=== PATIENT | male | born 1990 | race Caucasian/White ===

== ENCOUNTER 2024-04-08 14:33 | Emergency (ER) | payer OTHER, SELFPAY ==
[2024-04-08 14:42] VITALS: BP 158/106; PULSE 82; RESP 16; TEMP 36.5; O2SAT 100; BMI 26.9
[2024-04-08 15:35] VITALS: BP 135/96; PULSE 84; RESP 16; O2SAT 99
--- NOTE | 2024-04-08 15:35 | W.ED.GENADLT ---
Documented by User: PATRICIA Llanos 04/08/24 16:59 HPI - General Adult General: Chief complaint: General Medical Stated complaint: Eyes/ skin yellow sent by PCP Time Seen by Provider: 04/08/24 15:24 Source: patient and family Mode of arrival: ambulatory Limitations: no limitations History of Present Illness: Patient is a nice 33-year-old male who presents to ED today along with his significant other for complaints of jaundice, weight loss, pruritus over the past 3 weeks or so. states she and him both had viral-like illness around consisting of fevers, chills, body aches, URI-like symptoms. She states they improved conservatively but shortly after resolution of symptoms, patient began having the above symptoms. does feel like the jaundice has somewhat improved since onset. They reportedly contacted their primary care doctor today who instructed them to come to the emergency department. states he has lost about 15 pounds over the past week and a half. They do feel like he is eating normally. He is not having any abdominal pain. He is not having any vomiting or changes in bowel movements. No change in stool color. No fevers. Onset (ago): week(s) Relieving factors: none Exacerbating factors: none Associated symptoms: Deny chest pain, dyspnea, headache(s), malaise, nausea, rash or vomiting Treatments prior to arrival: none Related Data Previous Rx's Medication Instructions Recorded cholestyramine (with sugar) 4 gram 4 g PO BID #348.6 grams 04/08/24 oral powder Allergies Allergy/AdvReac Type Severity Reaction Status Date / Time No Known Allergies Allergy Verified 04/08/24 14:46 Review of Systems Const: Reports: change in weight; Denies: fever(s), chills, body aches, fatigue or malaise Eyes: Reports: yellow eyes ENMT: Denies: throat pain, odynophagia, ear or mastoid pain, nasal discharge, nasal congestion or sinus pain Card: Denies: chest pain Resp: Denies: dyspnea GI: Denies: abdominal pain, nausea, vomiting or diarrhea : Denies: flank pain, difficulty urinating, dysuria, urinary frequency, urinary urgency or urinary hesitancy Musc: Denies: neck pain, back pain, extremity pain, extremity swelling, joint pain or joint swelling Skin/Breast: Denies: rash Neuro: Denies: headache(s), numbness in extremities, weakness in extremities or sensory changes Physical Exam Const: COMMON NORMALS: no acute distress, average body habitus, patient oriented x3, no limitations, healthy appearing, alert and well nourished GENERAL APPEARANCE: cooperative ORIENTATION/CONSCIOUSNESS: Yes awake, Yes oriented to person, Yes oriented to place and Yes oriented to time HENMT: COMMON NORMALS: normocephalic and atraumatic HEAD & SCALP: normal to inspection, normocephalic and atraumatic FACE & SINUS: normal facial exam Eye: COMMON NORMALS: Equal, round and reactive pupils present and EOMs intact bilaterally GENERAL EYE: appearance normal, both eyes and all related structures and normal light reflex SCLERA: scleral abnormal Laterality of scleral abnormality: positive bilateral scleral icterus PUPIL: Yes Equal, round and reactive pupils present DIRECT OPHTHALMOSCOPY: Yes normal light reflex Neck/C-Spine: COMMON NORMALS: full ROM, no lymphadenopathy, supple and no meningeal signs Chest: COMMONS NORMALS: normal inspection of the chest Resp: COMMON NORMALS: normal respiratory effort and clear to auscultation bilaterally AUSCULTATION: clear to auscultation bilaterally Cardio: COMMON NORMALS: regular rate and regular rhythm RATE: regular rate RHYTHM: regular rhythm GI: COMMON NORMALS: Normal to inspection, nondistended, normoactive bowel sounds present, Soft to palpation, non-tender, No hepatosplenomegaly present and no masses INSPECTION: Yes normal to inspection AUSCULTATION: Yes normoactive bowel sounds PALPATION: Yes Soft to palpation, No Tenderness to palpation present (GI), No Guarding due to palpation present (GI), No Rigid due to palpation and Yes No hepatosplenomegaly present : COMMON NORMALS: Yes no CVA tenderness BLADDER/KIDNEY EXAM: Yes no CVA tenderness Back/Pelvis: COMMON NORMALS: no CVA tenderness and thoracic and lumbar spine normal to inspection Extremity: COMMON NORMALS: normal to inspection GENERAL: Yes normal exam except as noted Neuro: LAWRENCE COMA SCALE: document GCS findings Lawrence coma scale eye opening: Spontaneous [place] coma scale verbal response: Orientated [place] coma scale motor response: Obey commands Grant coma scale total score: 15 COMMON NORMALS: patient oriented x3, moves all extremities, no focal motor deficits, no sensory deficits noted and gait normal SENSORIUM/ORIENTATION: Yes alert, Yes oriented to person, Yes oriented to place and Yes oriented to time MENINGEAL SIGNS: Yes no meningeal signs Course ED course: Patient has painless jaundice with a tbili of 7.2. He has CT imaging and US ordered. Care transferred to MONICA Gomez Vital Signs: Vital signs: Vital Signs Temperature 97.7 F 04/08/24 14:42 Pulse Rate 84 04/08/24 15:35 Respiratory Rate 16 04/08/24 15:35 Blood Pressure 135/96 04/08/24 15:35 Pulse Oximetry 99 04/08/24 15:35 [facility] [place] - General Adult Lab Data 04/08/24 15:44 04/08/24 15:44 Radiology Impressions Abdomen/Pelvis CT 04/08/24 16:46 IMPRESSION: 1. Borderline hepatomegaly. 2. No biliary ductal dilatation. 3. Fecalization of material within small bowel loops can be seen with hypomotility and/or enteritis. 4. Moderate colonic stool. Correlate for constipation. Gallbladder Ultrasound 04/08/24 16:46 IMPRESSION: No acute findings. Laboratory Results WBC 9.01 10^3/uL (3.29-11.43) 04/08/24 15:44 RBC 6.97 10^6/uL (3.85-5.65) H 04/08/24 15:44 Hgb 18.80 g/dL (11.27-16.99) H 04/08/24 15:44 Hct 56.3 % (37-53) H 04/08/24 15:44 MCV 80.8 fl (82-101) L 04/08/24 15:44 MCH 27.0 pg (27-33) 04/08/24 15:44 MCHC 33.4 g/dL (30-55) 04/08/24 15:44 RDW 19.2 % (12.1-15.1) H 04/08/24 15:44 Plt Count 353 10^3/cmm (157-399) 04/08/24 15:44 MPV 9.6 fL (7.4-10.4) 04/08/24 15:44 Neut % (Auto) 62.4 % 04/08/24 15:44 Lymph % (Auto) 16.9 % 04/08/24 15:44 [place] % (Auto) 10.0 % 04/08/24 15:44 Eos % (Auto) 9.1 % 04/08/24 15:44 Baso % (Auto) 1.0 % 04/08/24 15:44 Neut # (Auto) 5.63 10^3/uL (1.8-7.7) 04/08/24 15:44 Lymph # (Auto) 1.5 10^3/uL (0.8-4.8) 04/08/24 15:44 [place] # (Auto) 0.9 10^3/uL (0.2-0.9) 04/08/24 15:44 Eos # (Auto) 0.8 10^3/uL (0.0-0.8) 04/08/24 15:44 Baso # (Auto) 0.1 10^3/uL (0.0-0.1) 04/08/24 15:44 Nucleated RBC % (auto) 0 % 04/08/24 15:44 Nucleated RBCs # 0.0 /100WBC 04/08/24 15:44 PT 12.10 SECONDS (12.1-14.9) 04/08/24 15:44 INR 0.87 (0.8-1.2) 04/08/24 15:44 APTT 26.5 SECONDS (23.9-36.7) 04/08/24 15:44 Sodium 138 mmol/L (136-145) 04/08/24 15:44 Potassium 4.3 mmol/L (3.5-5.1) 04/08/24 15:44 Chloride 102 mmol/L (98-107) 04/08/24 15:44 Carbon Dioxide 26 mmol/L (22-29) 04/08/24 15:44 Anion Gap 14.3 (5-19) 04/08/24 15:44 BUN 14 mg/dL (6-20) 04/08/24 15:44 Creatinine 1.0 mg/dL (0.7-1.2) 04/08/24 15:44 GFR Calculation 86.1 mL/min (90-130) L 04/08/24 15:44 Glucose 123 mg/dL (65-115) H 04/08/24 15:44 Calculated Osmolality 288 mOsm/kg (285-295) 04/08/24 15:44 Calcium 10.1 mg/dL (8.5-10.5) 04/08/24 15:44 Total Bilirubin 7.2 mg/dL (0.15-1.2) H* 04/08/24 15:44 AST 81 U/L (0-40) H 04/08/24 15:44 ALT 205 U/L (0-41) H 04/08/24 15:44 Alkaline Phosphatase 108 U/L (40-130) 04/08/24 15:44 Ammonia 29 umol/L (16-60) 04/08/24 15:44 Lactate Dehydrogenase 436 U/L (135-225) H 04/08/24 15:44 Total Protein 7.8 g/dL (6.6-8.7) 04/08/24 15:44 Albumin 4.3 g/dL (3.5-5.2) 04/08/24 15:44 Globulin 3.5 g/dL (1.3-4.6) 04/08/24 15:44 Urine Opiates Screen Negative ng/mL (Negative) 04/08/24 16:13 Acetaminophen < 5.0 ug/mL (10-30) L 04/08/24 15:44 Ur Barbiturates Screen Negative ng/mL (Negative) 04/08/24 16:13 Ur Phencyclidine Scrn Negative ng/mL (Negative) 04/08/24 16:13 Ur Amphetamines Screen Negative ng/mL (Negative) 04/08/24 16:13 U Benzodiazepines Scrn Negative ng/mL (Negative) 04/08/24 16:13 Urine Cocaine Screen Negative ng/mL (Negative) 04/08/24 16:13 U Marijuana (THC) Screen Negative ng/mL (Negative) 04/08/24 16:13 Hepatitis A IgM Ab Non-reactive (Nonreactive) 04/08/24 15:44 Hep Bs Antigen Non-reactive (Nonreactive) 04/08/24 15:44 Hep B Core IgM Ab Non-reactive (Nonreactive) 04/08/24 15:44 Hepatitis C Antibody Non-reactive (Nonreactive) 04/08/24 15:44 Discharge Plan Discharge Patient Disposition: Home Clinical Impression: Hyperbilirubinemia Condition: Stable Prescriptions: New cholestyramine (with sugar) 4 gram powder 4 g PO BID Qty: 348.6 0RF Rx Instructions: administer w/meal; avoid other meds within 1hr before or 4-6hr after dose Discharge Orders: Discharge ED (Routine); Ordered 04/08/24 Ordered By: Marquise Melvin Patient Instructions: Jaundice (ED) Activity Restrictions/Additional Instructions: Follow-up with Dr. Ho as soon as possible for reevaluation. Take cholestyramine for the itching. If you start to develop any pain in the right upper quadrant, worsening of your jaundice, high fevers, or other concerning symptoms please return to the emergency department. Sign Out Sign Out Data: Patient Sign Out occurred on 04/08/24 at 17:07. Patient's care was discussed, and care was transferred from PATRICIA Llanos to PATRICIA De La Torre. Coding Level of Care Code ED Baggageman for Chg Fwd Documented by User: PATRICIA De La Torre 04/08/24 19:01 HPI - General Adult General: Chief complaint: General Medical Stated complaint: Eyes/ skin yellow sent by PCP Time Seen by Provider: 04/08/24 15:24 Related Data Previous Rx's Medication Instructions Recorded cholestyramine (with sugar) 4 gram 4 g PO BID #348.6 grams 04/08/24 oral powder Allergies Allergy/AdvReac Type Severity Reaction Status Date / Time No Known Allergies Allergy Verified 04/08/24 14:46 Physical Exam Neuro: LAWRENCE COMA SCALE: document GCS findings [place] coma scale total score: 15 Course Vital Signs: Vital signs: Vital Signs Temperature 97.7 F 04/08/24 14:42 Pulse Rate 84 04/08/24 15:35 Respiratory Rate 16 04/08/24 15:35 Blood Pressure 135/96 04/08/24 15:35 Pulse Oximetry 99 04/08/24 15:35 MDM - General Adult Medical Decision Making Care of patient transferred to mi by daysmtft provider. This patient has had pain with jaundice for the past 3 weeks, noted to be improving per patient and spouse in the room. With his lab work, was found to have elevated T. bili of 7.2, mild elevation in his LFTs and elevated LDH. By gallbladder ultrasound, this was negative. On CT found to have borderline hepatomegaly. Viral hepatitis cannot be excluded, and his acute hepatitis panel was negative. No history of IV drug use or recent travel. Primarily his complaint was the itching, as he was encouraged to himself of the improvement of his symptoms, also wanted to know if anything was structurally wrong. Informed him that we can refer him to GI if he wants, however he would prefer to follow-up with primary care first before any referrals. He is requesting something for the itching however, and we will prescribe bile sequestrant cholestyramine to see if this helps. His vitals have been stable throughout the ED course, has had no pain, no fevers, and no confusion. With any worsening of his jaundice, onset of pain, high fevers, or other concerning signs he is encouraged to report back to the emergency department for further evaluation. Discussed this case with Dr. Little who agrees with this plan. Lab Data 04/08/24 15:44 04/08/24 15:44 Radiology Impressions Abdomen/Pelvis CT 04/08/24 16:46 IMPRESSION: 1. Borderline hepatomegaly. 2. No biliary ductal dilatation. 3. Fecalization of material within small bowel loops can be seen with hypomotility and/or enteritis. 4. Moderate colonic stool. Correlate for constipation. Gallbladder Ultrasound 04/08/24 16:46 IMPRESSION: No acute findings. Laboratory Results WBC 9.01 10^3/uL (3.29-11.43) 04/08/24 15:44 RBC 6.97 10^6/uL (3.85-5.65) H 04/08/24 15:44 Hgb 18.80 g/dL (11.27-16.99) H 04/08/24 15:44 Hct 56.3 % (37-53) H 04/08/24 15:44 MCV 80.8 fl (82-101) L 04/08/24 15:44 MCH 27.0 pg (27-33) 04/08/24 15:44 MCHC 33.4 g/dL (30-55) 04/08/24 15:44 RDW 19.2 % (12.1-15.1) H 04/08/24 15:44 Plt Count 353 10^3/cmm (157-399) 04/08/24 15:44 MPV 9.6 fL (7.4-10.4) 04/08/24 15:44 Neut % (Auto) 62.4 % 04/08/24 15:44 Lymph % (Auto) 16.9 % 04/08/24 15:44 [place] % (Auto) 10.0 % 04/08/24 15:44 Eos % (Auto) 9.1 % 04/08/24 15:44 Baso % (Auto) 1.0 % 04/08/24 15:44 Neut # (Auto) 5.63 10^3/uL (1.8-7.7) 04/08/24 15:44 Lymph # (Auto) 1.5 10^3/uL (0.8-4.8) 04/08/24 15:44 [place] # (Auto) 0.9 10^3/uL (0.2-0.9) 04/08/24 15:44 Eos # (Auto) 0.8 10^3/uL (0.0-0.8) 04/08/24 15:44 Baso # (Auto) 0.1 10^3/uL (0.0-0.1) 04/08/24 15:44 Nucleated RBC % (auto) 0 % 04/08/24 15:44 Nucleated RBCs # 0.0 /100WBC 04/08/24 15:44 PT 12.10 SECONDS (12.1-14.9) 04/08/24 15:44 INR 0.87 (0.8-1.2) 04/08/24 15:44 APTT 26.5 SECONDS (23.9-36.7) 04/08/24 15:44 Sodium 138 mmol/L (136-145) 04/08/24 15:44 Potassium 4.3 mmol/L (3.5-5.1) 04/08/24 15:44 Chloride 102 mmol/L (98-107) 04/08/24 15:44 Carbon Dioxide 26 mmol/L (22-29) 04/08/24 15:44 Anion Gap 14.3 (5-19) 04/08/24 15:44 BUN 14 mg/dL (6-20) 04/08/24 15:44 Creatinine 1.0 mg/dL (0.7-1.2) 04/08/24 15:44 GFR Calculation 86.1 mL/min (90-130) L 04/08/24 15:44 Glucose 123 mg/dL (65-115) H 04/08/24 15:44 Calculated Osmolality 288 mOsm/kg (285-295) 04/08/24 15:44 Calcium 10.1 mg/dL (8.5-10.5) 04/08/24 15:44 Total Bilirubin 7.2 mg/dL (0.15-1.2) H* 04/08/24 15:44 AST 81 U/L (0-40) H 04/08/24 15:44 ALT 205 U/L (0-41) H 04/08/24 15:44 Alkaline Phosphatase 108 U/L (40-130) 04/08/24 15:44 Ammonia 29 umol/L (16-60) 04/08/24 15:44 Lactate Dehydrogenase 436 U/L (135-225) H 04/08/24 15:44 Total Protein 7.8 g/dL (6.6-8.7) 04/08/24 15:44 Albumin 4.3 g/dL (3.5-5.2) 04/08/24 15:44 Globulin 3.5 g/dL (1.3-4.6) 04/08/24 15:44 Urine Opiates Screen Negative ng/mL (Negative) 04/08/24 16:13 Acetaminophen < 5.0 ug/mL (10-30) L 04/08/24 15:44 Ur Barbiturates Screen Negative ng/mL (Negative) 04/08/24 16:13 Ur Phencyclidine Scrn Negative ng/mL (Negative) 04/08/24 16:13 Ur Amphetamines Screen Negative ng/mL (Negative) 04/08/24 16:13 U Benzodiazepines Scrn Negative ng/mL (Negative) 04/08/24 16:13 Urine Cocaine Screen Negative ng/mL (Negative) 04/08/24 16:13 U Marijuana (THC) Screen Negative ng/mL (Negative) 04/08/24 16:13 Hepatitis A IgM Ab Non-reactive (Nonreactive) 04/08/24 15:44 Hep Bs Antigen Non-reactive (Nonreactive) 04/08/24 15:44 Hep B Core IgM Ab Non-reactive (Nonreactive) 04/08/24 15:44 Hepatitis C Antibody Non-reactive (Nonreactive) 04/08/24 15:44 All radiology interpretation(s) finalized by discharge Discharge Plan Discharge Patient Disposition: Home Clinical Impression: Hyperbilirubinemia Condition: Stable Prescriptions: New cholestyramine (with sugar) 4 gram powder 4 g PO BID Qty: 348.6 0RF Rx Instructions: administer w/meal; avoid other meds within 1hr before or 4-6hr after dose Discharge Orders: Discharge ED (Routine); Ordered 04/08/24 Ordered By: Marquise Melvin Patient Instructions: Jaundice (ED) Activity Restrictions/Additional Instructions: Follow-up with Dr. Ho as soon as possible for reevaluation. Take cholestyramine for the itching. If you start to develop any pain in the right upper quadrant, worsening of your jaundice, high fevers, or other concerning symptoms please return to the emergency department. Sign Out Sign Out Data: Patient Sign Out occurred on 04/08/24 at 17:07. Patient's care was discussed, and care was transferred from PATRICIA Llanos to PATRICIA De La Torre. Coding Level of Care Code ED Baggageman for Pablo Fan
[2024-04-08 16:00] LABS: Basophils # 0.1 10^3/uL (0.0-0.1); Eosinophils # 0.8 10^3/uL (0.0-0.8); Eosinophils % 9.1 %; Hematocrit 56.3 % (37-53); Lymphocytes # 1.5 10^3/uL (0.8-4.8); Lymphocytes % 16.9 %; Mean Corpuscular HGB Conc 33.4 g/dL (30-55); Mean Corpuscular Volume 80.8 fl (82-101); Mean Platelet Volume 9.6 fL (7.4-10.4); Monocytes # 0.9 10^3/uL (0.2-0.9); Neutrophils # 5.63 10^3/uL (1.8-7.7); Neutrophils % 62.4 %; Nucleated Red Blood Cells % 0 %; Platelet Count 353 10^3/cmm (157-399); Red Blood Count 6.97 10^6/uL (3.85-5.65); Red Cell Distribution Width 19.2 % (12.1-15.1); White Blood Count 9.01 10^3/uL (3.29-11.43)
[2024-04-08 16:26] LABS: INR 0.87 (0.8-1.2); Partial Thromboplastin Time 26.5 SECONDS (23.9-36.7)
[2024-04-08 16:28] LABS: Ammonia 29 umol/L (16-60)
[2024-04-08 16:29] LABS: Alanine Aminotransferase 205 U/L (0-41); Albumin Level 4.3 g/dL (3.5-5.2); Alkaline Phosphatase 108 U/L (40-130); Anion Gap 14.3 (5-19); Aspartate Amino Transferase 81 U/L (0-40); Blood Urea Nitrogen 14 mg/dL (6-20); Calcium 10.1 mg/dL (8.5-10.5); Carbon Dioxide 26 mmol/L (22-29); Chloride 102 mmol/L (98-107); Creatinine Clr Calc Pharmacy 98.5185; Globulin 3.5 g/dL (1.3-4.6); Glomerular Filtration Rate 86.1 mL/min (90-130); Glucose 123 mg/dL (65-115); Lactate Dehydrogenase 436 U/L (135-225); Osmolality Calculated 288 mOsm/kg (285-295); Potassium 4.3 mmol/L (3.5-5.1); Sodium 138 mmol/L (136-145); Total Protein 7.8 g/dL (6.6-8.7)
[2024-04-08 16:30] LABS: Acetaminophen < 5.0 ug/mL (10-30)
[2024-04-08 16:31] LABS: Total Bilirubin 7.2 mg/dL (0.15-1.2)
[2024-04-08 16:33] LABS: Amphetamines Screen Urine Negative (Negative); Barbiturates Screen Urine Negative (Negative); Benzodiazepines Screen Urine Negative (Negative); Cocaine Screen Urine Negative (Negative); Opiate Screen Urine Negative (Negative); PCP Screen Urine Negative (Negative); THC Screen Urine Negative (Negative)
[2024-04-08 16:41] LABS: Hepatitis A Antibody IgM Non-Reactive (Nonreactive); Hepatitis B Core IgM Non-Reactive (Nonreactive); Hepatitis B Surface Antigen Non-Reactive (Nonreactive); Hepatitis C Virus Antibody Non-Reactive (Nonreactive)
--- NOTE | 2024-04-08 16:46 | CTR_ITS ---
PROCEDURE INFORMATION: Exam: CT Abdomen And Pelvis With Contrast Exam date and time: 04/08/2024 5:24 PM Age: 33 years old Clinical indication: Other: Jaundice; Prior surgery; Surgery date: 6+ months; Surgery type: Hernia; Additional info: Painless jaundice, bili 7.2 TECHNIQUE: Imaging protocol: Computed tomography of the abdomen and pelvis with contrast. Radiation optimization: All CT scans at this facility use at least one of these dose optimization techniques: automated exposure control; mA and/or kV adjustment per patient size (includes targeted exams where dose is matched to clinical indication); or iterative reconstruction. Contrast material: OMNIPAQUE 350; Contrast volume: 100 ml; Contrast route: INTRAVENOUS (IV); COMPARISON: No relevant prior studies available. RADIATION DOSE METRICS: Total DLP (mGy-cm): 367.22 FINDINGS: Liver: The liver is borderline enlarged, measuring 18 cm craniocaudal. No suspicious liver lesion. Gallbladder and biliary ducts: Normal. No calcified stones. No ductal dilation. Pancreas: Normal. No ductal dilation. Spleen: Normal. No splenomegaly. Adrenal glands: Normal. No mass. Kidneys and ureters: Normal. No hydronephrosis. Stomach and bowel: Moderate stool throughout the colon. Fecalization of contents within several small bowel loops, including the distal ileum. No evidence of bowel obstruction. Appendix: No evidence of appendicitis. Intraperitoneal space: Unremarkable. No free air. No significant fluid collection. Vasculature: Unremarkable. No abdominal aortic aneurysm. Lymph nodes: Unremarkable. No enlarged lymph nodes. Urinary bladder: Unremarkable as visualized. Reproductive: Unremarkable as visualized. Bones/joints: Unremarkable. No acute fracture. Soft tissues: Unremarkable. CT/CT abdomen pelvis w con* [id number] IMPRESSION: 1. Borderline hepatomegaly. 2. No biliary ductal dilatation. 3. Fecalization of material within small bowel loops can be seen with hypomotility and/or enteritis. 4. Moderate colonic stool. Correlate for constipation.
--- NOTE | 2024-04-08 16:46 | USR_ITS ---
PROCEDURE INFORMATION: Exam: US Abdomen, Limited; Right Upper Quadrant Exam date and time: 04/08/2024 5:24 PM Age: 33 years old Clinical indication: Abnormal findings; Abnormal lab test; Other: Not sure; Additional info: Hyperbilirubinemia TECHNIQUE: Imaging protocol: Real time ultrasound of the abdomen with image documentation. Limited exam focused on the right upper quadrant. COMPARISON: CT abdomen pelvis w con* [id number] 04/08/2024 5:24 PM FINDINGS: Liver: Normal. No masses. Liver measures 18 cm in length. Gallbladder: Normal. No gallstones. There is no gallbladder wall thickening. Biliary ducts: Normal. No stones. No dilation. Common bile duct measures 0.4 cm. Pancreas: Visualized pancreas is unremarkable. Right kidney: Normal. No mass. No hydronephrosis. Right kidney measures 11.9 cm in length. Inferior vena cava: Upper IVC measures 1.3 cm in caliber. Portal venous: Normal directional flow in the main portal vein. US/US gall bladder [id number] IMPRESSION: No acute findings.
[2024-04-08] MEDS: iohexol 350 mg/mL 500 mL Btl (per mL) IV (17:27)
[2024-04-08] MEDS: cholestyramine powder 4 gm Pkt PO (19:00)
[2024-04-08 19:01] LABS: Lipase 39 U/L (13-60)
[2024-04-08 19:05] VITALS: BP 135/96; PULSE 82; RESP 18; O2SAT 100
--- NOTE | 2024-04-09 16:33 | W.ED.GENADLT ---
HPI - General Adult General: Chief complaint: General Medical Stated complaint: Eyes/ skin yellow sent by PCP Time Seen by Provider: 04/08/24 15:24 Source: patient and family Mode of arrival: ambulatory Limitations: no limitations History of Present Illness: Relieving factors: none Exacerbating factors: none Treatments prior to arrival: none Related Data Previous Rx's Medication Instructions Recorded cholestyramine (with sugar) 4 gram 4 g PO BID #348.6 grams 04/09/24 oral powder Allergies Allergy/AdvReac Type Severity Reaction Status Date / Time No Known Allergies Allergy Verified 04/08/24 14:46 Course Vital Signs: Vital signs: Vital Signs Temperature 97.7 F 04/08/24 14:42 Pulse Rate 82 04/08/24 19:05 Respiratory Rate 18 04/08/24 19:05 Blood Pressure 135/96 04/08/24 19:05 Pulse Oximetry 100 04/08/24 19:05 [facility] - General Adult Lab Data 04/08/24 15:44 04/08/24 15:44 Radiology Impressions Abdomen/Pelvis CT 04/08/24 16:46 IMPRESSION: 1. Borderline hepatomegaly. 2. No biliary ductal dilatation. 3. Fecalization of material within small bowel loops can be seen with hypomotility and/or enteritis. 4. Moderate colonic stool. Correlate for constipation. Gallbladder Ultrasound 04/08/24 16:46 IMPRESSION: No acute findings. Laboratory Results WBC 9.01 10^3/uL (3.29-11.43) 04/08/24 15:44 RBC 6.97 10^6/uL (3.85-5.65) H 04/08/24 15:44 Hgb 18.80 g/dL (11.27-16.99) H 04/08/24 15:44 Hct 56.3 % (37-53) H 04/08/24 15:44 MCV 80.8 fl (82-101) L 04/08/24 15:44 MCH 27.0 pg (27-33) 04/08/24 15:44 MCHC 33.4 g/dL (30-55) 04/08/24 15:44 RDW 19.2 % (12.1-15.1) H 04/08/24 15:44 Plt Count 353 10^3/cmm (157-399) 04/08/24 15:44 MPV 9.6 fL (7.4-10.4) 04/08/24 15:44 Neut % (Auto) 62.4 % 04/08/24 15:44 Lymph % (Auto) 16.9 % 04/08/24 15:44 [place] % (Auto) 10.0 % 04/08/24 15:44 Eos % (Auto) 9.1 % 04/08/24 15:44 Baso % (Auto) 1.0 % 04/08/24 15:44 Neut # (Auto) 5.63 10^3/uL (1.8-7.7) 04/08/24 15:44 Lymph # (Auto) 1.5 10^3/uL (0.8-4.8) 04/08/24 15:44 [place] # (Auto) 0.9 10^3/uL (0.2-0.9) 04/08/24 15:44 Eos # (Auto) 0.8 10^3/uL (0.0-0.8) 04/08/24 15:44 Baso # (Auto) 0.1 10^3/uL (0.0-0.1) 04/08/24 15:44 Nucleated RBC % (auto) 0 % 04/08/24 15:44 Nucleated RBCs # 0.0 /100WBC 04/08/24 15:44 PT 12.10 SECONDS (12.1-14.9) 04/08/24 15:44 INR 0.87 (0.8-1.2) 04/08/24 15:44 APTT 26.5 SECONDS (23.9-36.7) 04/08/24 15:44 Sodium 138 mmol/L (136-145) 04/08/24 15:44 Potassium 4.3 mmol/L (3.5-5.1) 04/08/24 15:44 Chloride 102 mmol/L (98-107) 04/08/24 15:44 Carbon Dioxide 26 mmol/L (22-29) 04/08/24 15:44 Anion Gap 14.3 (5-19) 04/08/24 15:44 BUN 14 mg/dL (6-20) 04/08/24 15:44 Creatinine 1.0 mg/dL (0.7-1.2) 04/08/24 15:44 GFR Calculation 86.1 mL/min (90-130) L 04/08/24 15:44 Glucose 123 mg/dL (65-115) H 04/08/24 15:44 Calculated Osmolality 288 mOsm/kg (285-295) 04/08/24 15:44 Calcium 10.1 mg/dL (8.5-10.5) 04/08/24 15:44 Total Bilirubin 7.2 mg/dL (0.15-1.2) H* 04/08/24 15:44 AST 81 U/L (0-40) H 04/08/24 15:44 ALT 205 U/L (0-41) H 04/08/24 15:44 Alkaline Phosphatase 108 U/L (40-130) 04/08/24 15:44 Ammonia 29 umol/L (16-60) 04/08/24 15:44 Lactate Dehydrogenase 436 U/L (135-225) H 04/08/24 15:44 Total Protein 7.8 g/dL (6.6-8.7) 04/08/24 15:44 Albumin 4.3 g/dL (3.5-5.2) 04/08/24 15:44 Globulin 3.5 g/dL (1.3-4.6) 04/08/24 15:44 Lipase 39 U/L (13-60) 04/08/24 15:44 Urine Opiates Screen Negative ng/mL (Negative) 04/08/24 16:13 Acetaminophen < 5.0 ug/mL (10-30) L 04/08/24 15:44 Ur Barbiturates Screen Negative ng/mL (Negative) 04/08/24 16:13 Ur Phencyclidine Scrn Negative ng/mL (Negative) 04/08/24 16:13 Ur Amphetamines Screen Negative ng/mL (Negative) 04/08/24 16:13 U Benzodiazepines Scrn Negative ng/mL (Negative) 04/08/24 16:13 Urine Cocaine Screen Negative ng/mL (Negative) 04/08/24 16:13 U Marijuana (THC) Screen Negative ng/mL (Negative) 04/08/24 16:13 Hepatitis A IgM Ab Non-reactive (Nonreactive) 04/08/24 15:44 Hep Bs Antigen Non-reactive (Nonreactive) 04/08/24 15:44 Hep B Core IgM Ab Non-reactive (Nonreactive) 04/08/24 15:44 Hepatitis C Antibody Non-reactive (Nonreactive) 04/08/24 15:44 Discharge Plan Discharge Patient Disposition: Home Clinical Impression: Hyperbilirubinemia Condition: Stable Prescriptions: New cholestyramine (with sugar) 4 gram powder 4 g PO BID Qty: 348.6 0RF Rx Instructions: administer w/meal; avoid other meds within 1hr before or 4-6hr after dose Discharge Orders: Discharge ED (Routine); Ordered 04/08/24 Ordered By: Marquise Melvin Patient Instructions: Jaundice (ED) Activity Restrictions/Additional Instructions: Follow-up with Dr. Ho as soon as possible for reevaluation. Take cholestyramine for the itching. If you start to develop any pain in the right upper quadrant, worsening of your jaundice, high fevers, or other concerning symptoms please return to the emergency department. Sign Out Sign Out Data: Patient Sign Out occurred on 04/08/24 at 17:07. Patient's care was discussed, and care was transferred from PATRICIA Llanos to PATRICIA De La Torre. Coding Level of Care Code ED Robotics Software Engineer for Pablo Fan
== END 2024-04-08 19:07 | disposition home or self-care (01) ==
PROVIDERS: Emergency Medicine; Physician Assistant; Emergency Provider Physician Assistant
DX: P59.9 Neonatal jaundice, unspecified (principal)
CPT/HCPCS: 74177; 76705; 80053; 80074; 80306; 80307; 82140; 83615; 83690; 85025; 85610; 85730; 99285